=== PATIENT | male | born 1990 | race Caucasian/White ===

== ENCOUNTER 2017-05-02 14:39 | Emergency (ER) | payer SELFPAY ==
[~2017-05-02] VITALS: Ht 182.9 cm; Wt 84.1 kg
[~2017-05-02 14:39] MED LIST: ABILIFY5 MG PO; ADDERALL30 MG PO; ANXIETY MED; ATARAX 10MG10 MG/TAB; CELEXA 20MG20 MG/TAB PO; CIPRO 500MG TA500 MG PO; CLINDAMYCIN150 MG PO; CLONAZEPAM PO; COGENTIN1 MG PO; DOXYCYCLINE 10100 MG PO; FLEXERIL 1010 MG/TAB PO; HALDOL5 MG PO; LORTAB 5/500 501 TAB PO; NO HOME MEDICATIONS; NORCO 325 MG-51 TAB PO; PERCOCET 325 MG1 TA2 PO; PRISTIQ50 MG PO; SEROQUEL XR150 MG PO; SEROQUEL XR300 MG PO; SEROQUEL100 MG PO; VICODIN 5/5001 UDTAB PO; XANAX1 MG PO; ZYPREXA5 MG PO
[2017-05-02 14:40] VITALS: BP 141/85; TEMP 98.7
[2017-05-02] MEDS ORDERED: AMOXICILLIN 50500 MG PO (15:27)
[2017-05-02] MEDS ORDERED: ULTRAM 50MG TAB50 MG PO (15:27)
[2017-05-02 15:39] VITALS: PULSE 104
== END 2017-05-02 15:40 | disposition home or self-care (01) ==
LOC: COL.ER 14:39
DX: K03.81 Cracked tooth (principal); K08.89 Other specified disorders of teeth and supporting structures; R50.9 Fever, unspecified; R22.0 Localized swelling, mass and lump, head; R51 Headache

== ENCOUNTER 2017-10-31 03:28 | Emergency (ER) | payer SELFPAY ==
[~2017-10-31] VITALS: Ht 182.9 cm; Wt 72.7 kg
[~2017-10-31 03:28] MED LIST changes: +AMOXICILLIN 50500 MG PO; +ULTRAM 50MG TAB50 MG PO
[2017-10-31 03:30] VITALS: BP 126/84; TEMP 97.5
[2017-10-31] MEDS ORDERED: AMOXICILLIN 8751 TAB PO (03:55)
[2017-10-31] MEDS ORDERED: MOTRIN 800800 MG/TAB PO (03:56)
[2017-10-31 04:30] VITALS: PULSE 98
== END 2017-10-31 05:07 | disposition home or self-care (01) ==
LOC: COL.ER 03:28
DX: K02.9 Dental caries, unspecified (principal); F17.210 Nicotine dependence, cigarettes, uncomplicated

== ENCOUNTER 2019-08-31 21:07 | Emergency (ER) | payer SELFPAY ==
[~2019-08-31] VITALS: Ht 182.9 cm; Wt 75.0 kg
[~2019-08-31 21:07] MED LIST changes: +AMOXICILLIN 8751 TAB PO; +MOTRIN 800800 MG/TAB PO
[2019-08-31 21:12] VITALS: BP 121/74
[2019-08-31 22:22] LABS: HEMATOCRIT 37.2 % (42.0-52.0); HEMOGLOBIN 12.9 g/dl (13.5-18.0); MEAN CELL VOLUME 87 fl (80.0-100.0); MEAN CORPUSCULAR HEMOGLOBIN 30 pg (27.0-31.0); MEAN CORPUSCULAR HGB CONC 35 g/dl (33.0-37.0); MEAN PLATELET VOLUME 8.8 fl (7.4-10.4); PLATELET COUNT 139 K/mm3 (130-400); RED BLOOD COUNT 4.28 M/mm3 (4.20-5.60); REDCELL DISTRIBUTION WIDTH-CV 12.6 % (11.5-14.5)
[2019-08-31 22:32] LABS: COLLECTION METHOD CLEAN CATCH
[2019-08-31 22:36] LABS: ALBUMIN 4.3 gm/dL (3.5-5.0); CALCIUM 9.1 mg/dL (8.4-10.2); CREATININE, serum 0.74 (0.66-1.25); POTASSIUM 3.3 mmol/L (3.4-5.0)
[2019-08-31 22:37] LABS: PH 6 (5-8); SQUAMOUS EPITHELIAL None Seen /hpf; URINE APPEARANCE Clear; URINE BACTERIA None Seen /hpf; URINE BILIRUBIN Negative (NEGATIVE); URINE BLOOD Negative (NEGATIVE); URINE COLOR Yellow; URINE GLUCOSE Negative (NEGATIVE); URINE KETONE 1+ (NEGATIVE); URINE LEUKOCYTE ESTERASE Negative (NEGATIVE); URINE NITRATE Negative (NEGATIVE); URINE PROTEIN(semi-quant) Negative (NEGATIVE); URINE RBC 0-2 /hpf; URINE UROBILINOGEN Negative (NEGATIVE)
[2019-08-31 22:38] LABS: LYMPHOCYTE 6 % (20.0-51.0); NEUTROPHILS 88 % (42.0-75.2); PLATELET ESTIMATE NORMAL (NORMAL)
[2019-08-31 22:39] LABS: MONOSCREEN NEGATIVE
[2019-08-31 22:48] LABS: C-REACTIVE PROTEIN 21.3 mg/dL (0.0-0.9)
[2019-08-31 23:07] VITALS: PULSE 114
[2019-08-31 23:35] VITALS: TEMP 99.1
== END 2019-08-31 23:50 | disposition left against medical advice (07) ==
LOC: COL.ER 21:07
PROVIDERS: Physician Assistant
DX: R65.10 Systemic inflammatory response syndrome (SIRS) of non-infectious origin without acute organ dysfunction (principal); F32.9 Major depressive disorder, single episode, unspecified; F41.9 Anxiety disorder, unspecified; F19.10 Other psychoactive substance abuse, uncomplicated; F17.210 Nicotine dependence, cigarettes, uncomplicated; Z88.5 Allergy status to narcotic agent

== ENCOUNTER 2019-09-01 22:38 | Emergency (ER) | payer SELFPAY ==
[~2019-09-01] VITALS: Ht 182.9 cm; Wt 75.0 kg
[2019-09-01 22:52] VITALS: TEMP 99.3
[2019-09-01 23:27] LABS: HEMOGLOBIN 12.4 g/dl (13.5-18.0); MEAN CELL VOLUME 88 fl (80.0-100.0); MEAN CORPUSCULAR HEMOGLOBIN 30 pg (27.0-31.0); MEAN CORPUSCULAR HGB CONC 35 g/dl (33.0-37.0); MEAN PLATELET VOLUME 9.2 fl (7.4-10.4); PLATELET COUNT 121 K/mm3 (130-400); REDCELL DISTRIBUTION WIDTH-CV 12.8 % (11.5-14.5)
[2019-09-01 23:29] LABS: HEMATOCRIT 35.9 % (42.0-52.0)
[2019-09-01 23:43] LABS: ALBUMIN 3.7 gm/dL (3.5-5.0); BILIRUBIN,TOTAL 0.8 mg/dL (0.0-1.0); CALCIUM 8.6 mg/dL (8.4-10.2); CREATININE, serum 0.88 (0.66-1.25); POTASSIUM 3.6 mmol/L (3.4-5.0); TOTAL PROTEIN 7.3 gm/dL (6.4-8.2)
[2019-09-01 23:54] LABS: C-REACTIVE PROTEIN 26.6 mg/dL (0.0-0.9)
[2019-09-02 00:10] LABS: EOSINOPHIL 1 % (0-4); LYMPHOCYTE 11 % (20.0-51.0); NEUTROPHILS 69 % (42.0-75.2)
[2019-09-02 00:11] LABS: PLATELET ESTIMATE DECREASED (NORMAL)
[2019-09-02 00:29] LABS: TROPONIN-I < 0.012 ng/mL (0.000-0.035)
[2019-09-02 02:00] VITALS: BP 93/57; PULSE 93
== END 2019-09-02 02:00 | disposition short-term general hospital (02) ==
LOC: COL.ER 22:38
PROVIDERS: Nurse Practitioner; Nurse Practitioner Family
DX: R78.81 Bacteremia (principal); B95.8 Unspecified staphylococcus as the cause of diseases classified elsewhere; F41.9 Anxiety disorder, unspecified; B18.2 Chronic viral hepatitis C; F32.9 Major depressive disorder, single episode, unspecified; Z98.890 Other specified postprocedural states
CPT/HCPCS: J2405; J2543; J3370; J7030; J7040; J7050

== ENCOUNTER 2019-09-15 17:36 | Outpatient (RCR) | payer OTHER ==
[2019-09-17 19:22] VITALS: BP 142/92; PULSE 115; TEMP 98.3
--- NOTE | 2019-09-18 07:29 | NUR ---
This nurse tried to reach pt about abx on 09/16/19. All the phone numbers were wrong numbers. This nurse called ordering physician's office and notified unable to reach pt. Office gave a new number which this nurse left a message for pt to call for appt.
--- NOTE | 2019-09-18 09:19 | NUR ---
Attempted to call pt,not a working number.Called pt Emergency contact number.Per contact number, he no longer lives there and has no other contat info.
--- NOTE | 2019-09-18 16:19 | NUR ---
This nurse has attempted every contact number I have to reach out to pt.Copy of order taken to ED in case pt shows to ED again for IV abx.Report given to Oumou Calix Rn.Requested ER to have pt come to [facility] during business hrs for infusion and to arrange furter abx with whatever time pt is agreeable to come.
--- NOTE | 2019-09-23 10:30 | NUR ---
Pt no show. Left VM with friend requesting pt call us back.
--- NOTE | 2019-09-25 14:36 | NUR ---
Pt no show, left VM with emergency contact. This is the only phone number that works for pt. Other numbers state they do not know anyone by that name.
== END 2019-09-25 16:39 | disposition home or self-care (01) ==
LOC: EUO 09-16 10:00
DX: I36.8 Other nonrheumatic tricuspid valve disorders (principal); B95.61 Methicillin susceptible Staphylococcus aureus infection as the cause of diseases classified elsewhere
CPT/HCPCS: J0878

== ENCOUNTER 2019-10-05 21:00 | Emergency (ER) | payer OTHER ==
[~2019-10-05] VITALS: Ht 182.9 cm; Wt 72.7 kg
[2019-10-05 21:03] VITALS: BP 144/79; TEMP 97.4
[2019-10-05] MEDS ORDERED: DOXYCYCLINE 10100 MG PO (21:54)
[2019-10-05 22:17] VITALS: PULSE 88
== END 2019-10-05 22:17 | disposition home or self-care (01) ==
LOC: COL.ER 21:00
DX: L02.01 Cutaneous abscess of face (principal); Z86.79 Personal history of other diseases of the circulatory system; F17.210 Nicotine dependence, cigarettes, uncomplicated